=== PATIENT | male | born 1995 | race Caucasian/White ===

== ENCOUNTER 2024-08-06 12:00 | Emergency (ER) | payer SELFPAY ==
[2024-08-06 12:05] VITALS: BP 145/90
[2024-08-06 12:24] LABS: % Basophils 0.5 % (0-2); % Eosinophils 0.8 % (0-6); % Immature Granulocytes 0.5 % (0-0.5); % Lymphocytes 27.8 % (20.5-51.1); % Neutrophils 63.4 % (42.2-75.2); Absolute Eosinophils 0.1 10^3/uL (0-0.7); Absolute Lymphocytes 1.8 10^3/uL (1.2-3.4); Absolute Monocytes 0.5 10^3/uL (0.1-0.6); Absolute Neutrophils 4.1 10^3/uL (1.4-6.5); Hematocrit 41.5 % (39.0-52.0); Hemoglobin 14.7 g/dL (13.0-18.0); Mean Corp Hgb Conc. 35.4 g/dL (33.0-37.0); Mean Corpuscular Hgb 30.9 pg (27.0-31.0); Mean Corpuscular Volume 87.4 fL (80.0-94.0); Mean Platelet Volume 10.7 fL (7.4-10.4); Nucleated Red Blood Cells % 0 % (-); Platelet Count 217 10^3/uL (130-400); Red Blood Cell Count 4.75 10^6/uL (4.70-6.10); Red Cell Dist. Width 11.9 % (11.5-14.5); White Blood Cell Count 6.5 10^3/uL (4.8-10.8)
[2024-08-06 12:43] LABS: ALT (SGPT) 21 U/L (0-50); AST (SGOT) 20 U/L (17-59); Albumin 4.7 g/dl (3.5-5.0); Alkaline Phosphatase 61 U/L (38-126); Blood Urea Nitrogen 18 mg/dl (9-20); Calcium 9.7 mg/dl (8.4-10.2); Carbon Dioxide 28 mmol/L (22-30); Chloride 102 mmol/L (98-107); Glucose 107 mg/dl (70-99); Potassium 4.4 mmol/L (3.5-5.1); Sodium 138 mmol/L (135-145); Total Bilirubin 0.6 mg/dl (0.2-1.3); Total Protein 6.9 g/dl (6.3-8.2); eGFR > 60.00
[2024-08-06 12:51] LABS: Troponin I < 0.012 ng/ml
--- NOTE | 2024-08-06 13:53 | ED.GENMED ---
History of Present Illness
General
Chief Complaint: Chest Pain
Source: patient
Time Seen by Provider: 08/06/24 13:41
History of Present Illness
History of Present Illness:
29yoM with no significant past medical history presenting with his cousin for evaluation of chest pain. He reports intermittent L sided chest pain x 1 month. Pain is described as a pinching sensation. Pain seems to come and go randomly. His current
pain is worse with deep breathing. He also feels like his heart is racing at times when he is trying to go to sleep. He denies any shortness of breath, leg swelling, calf pain, cough, fever.
Phy Exam
General Physical Exam
General Presentation: well appearing and no apparent distress
General age: appears stated age
General Skin: warm and dry
General Habitus: normal
General Mental: alert
ENT Exam
ENT Exam: normocephalic
Cardiovascular Exam
Cardiovascular Exam: regular rate/rhythm, no edema, no murmur and normal peripheral pulses (2+ DP pulses bilaterally)
Pulmonary Exam
Pulmonary Exam: lungs clear, no respiratory distress, no rales, chest non tender, no crackles and no rhonchi
Neurological Exam
Neurological Exam: alert
Lejunior Coma Scale
Eye Opening: Spontaneous
Verbal Response: Oriented
Motor Response: Obeys Commands
GCS Total Score: 15
Skin Exam
Skin Exam: normal color and warm/dry
Psychiatric Exam
Psychiatric Exam: normal mood/affect
Scores
Heart Score for Chest Pain Patients
STEMI patient?: No
History: Slightly or Non-Suspicious
ECG: Normal
Age: </= 45 years
Risk Factors: No Risk Factors
Troponin: </= Normal Limit
Heart Score for Chest Pain Patients: 0
Heart Score Risk: 2.5% MACE over next 6 weeks
Course
Orders/Labs/Results
Orders:
Orders
08/06/24 12:01
ECG [Electrocardiogram (*1)] Urgent
Reason for Study: Chest Pain
EKG- Treatment ONCE
08/06/24 12:12
Complete Blood Count/With Diff Urgent
Comprehensive Metabolic Panel Urgent
TSH Urgent
Comment: ADD ON
Troponin I Urgent
08/06/24 13:52
Add On- LAB Urgent
Tests Added?: TSH
CR Chest - 2 Views Urgent
Comment:
Reason For Exam: CP
08/06/24 14:02
D-Dimer Urgent
Abnormal Lab Results
08/06/24
12:12
MPV 10.7 H fL
(7.4-10.4)
Glucose 107 H mg/dl
(70-99)
08/06/24 12:12
08/06/24 12:12
Vital Signs
Initial and Last Documented VS:
Initial Vital Signs
Temp Pulse Resp BP Pulse Ox
98.3 F 78 16 145/90 100
08/06/24 12:05 08/06/24 12:05 08/06/24 12:05 08/06/24 12:05 08/06/24 12:05
Last Documented Vital Signs
Temp Pulse Resp BP Pulse Ox
98.3 F 74 18 125/90 97
08/06/24 12:05 08/06/24 15:30 08/06/24 15:03 08/06/24 15:03 08/06/24 15:30
MDM/Problems Addressed
Differential Diagnosis Includes:
29yoM here with intermittent L sided chest pain x 1 month. Worse with breathing. Also having palpitations primarily at nighttime. He is afebrile and hemodynamically stable. He is well-appearing in no acute distress. Exam is reassuring.
Differential diagnosis includes but is not limited to: Pneumonia, pneumothorax, PE, pleurisy, pericarditis, less likely ACS
Initial ED plan: Cardiac labs and EKG obtained in triage. EKG shows normal sinus rhythm without ischemic changes and troponin is within normal limits. Will add on TSH, D-dimer, and chest x-ray.
*EKG
Interpreted by ED Provider?: Yes
EKG Intrepretation Date: 08/06/24
Heart Rate: 77
Rate: normal
Rhythm: sinus
Eunice: normal axis
Interval: normal interval
QRS Pattern: normal QRS
Ischemia: no ischemia
*Critical Care Note
Total Time (30-74mins, 75-104mins- exclusive of procedures): Not Applicable
Update Note
Update Note:
D-dimer normal making PE very unlikely. Chest x-ray is clear. No indication for admission at this time. Unclear etiology of symptoms. Patient is from [facility] and is returning home in several weeks. Advised follow-up with PCP and ED return
precautions discussed. He expressed understanding and is agreement with plan. He was discharged in stable condition.
ED Attending Note
-
Portions of this chart may have been created with voice recognition software.� Occasional wrong word or��sound alike� substitutions may have occurred due to the inherent limitations of voice recognition software.
Discharge Plan
Departure
Patient Disposition: Home (Routine Discharge)
Date of Disposition: 08/06/24
Time of Disposition: 15:41
Patient with high blood pressure during this ER visit?: No
Discharge Problem:
Chest pain
Instructions: Chest Pain PCP Follow Up
Referrals:
NONE,* [Family Provider] -
Activity Restrictions/Additional Instructions:
Please follow-up with your family doctor. Return to the ER with any new or worsening symptoms.
Interventions
Interventions:
*Risk Screen - Suicide Last Done: 08/06/24 12:05
*General Assessment Last Done: 08/06/24 12:05
*Neglect/Abuse Screening Last Done: 08/06/24 12:05
*ED COVID-19 Vaccine History Last Done: 08/06/24 14:00
*Nursing Disposition Last Done: 08/06/24 15:58
ED- Cardiac Assessment Last Done: 08/06/24 14:08
Discharge Date and Time
Discharge Date/Time: 08/06/24 15:59
Print Language: JAMA[place]
[2024-08-06 14:00] VITALS: BP 149/66
[2024-08-06 14:01] VITALS: BMI 35.3
[2024-08-06 14:45] LABS: D-Dimer < 0.27 ug/mlFEU (0.00-0.50)
[2024-08-06 15:03] VITALS: BP 125/90
[2024-08-06 15:03] LABS: TSH 1.86 uIU/ml (0.47-4.68)
== END 2024-08-06 15:59 | disposition home or self-care (01) ==
LOC: EMR 12:00
PROVIDERS: Physician Assistant; EMERGENCY PHYSICIAN Emergency Medicine
DX: R07.89 Other chest pain (principal)
CPT/HCPCS: 99283; 71046; 80053; 84443; 84484; 85025; 85379; 93005